=== PATIENT | female | born 1970 | race Caucasian/White ===

== ENCOUNTER → 2023-04-12 15:18 | Outpatient (REF) | payer OTHER, SELFPAY | LOC: HWWDC 15:18 | PROVIDERS: ATTENDING PHYSICIAN Family Medicine; REFERRING PHYSICIAN Obstetrics & Gynecology | DX: Z12.31 Encounter for screening mammogram for malignant neoplasm of breast (principal) | CPT/HCPCS: 77063; 77067 ==

== ENCOUNTER → 2024-05-16 13:29 | Outpatient (REF) | payer OTHER, SELFPAY | LOC: WDC 13:29 | PROVIDERS: ATTENDING PHYSICIAN Family Medicine | DX: Z12.31 Encounter for screening mammogram for malignant neoplasm of breast (principal) | CPT/HCPCS: 77063; 77067 ==